=== PATIENT | female | born 1935 | race Caucasian/White ===

== ENCOUNTER 2018-06-20 09:37 | Emergency (ER) | END 2018-06-20 14:45 | disposition home or self-care (01) ==

== ENCOUNTER 2019-05-09 10:03 | Inpatient (IN) | payer MEDICARE, OTHER ==
[~2019-05-09] VITALS: Ht 198.1 cm; Wt 70.0 kg
[~2019-05-09 10:03] MED LIST: AMLO5TAB4 PO; ASPI-903 PO; BUSP5TAB2 PO; CELE200C PO; CHOL100062 PO; CLON0.5T14 PO; DICL100G37 TOP; DOXE3TAB3 PO; DULO30CA47 PO; ESOM40CA PO; FURO40TA4 PO; HYDR25TA6 PO; LEVA15HF6 INH; LEVO50TA7 PO; LORA10TA3 PO; MEMA1CAP3 PO; METO-335 PO; MIRA50TA PO; NITR0.4T32 SL; OLME5TAB4 PO; ONDA8TAB14 PO; RANI150T5 PO; SPIR25TA PO; TRAM1TAB58 PO; VILA40TA PO
[2019-05-09] MEDS ORDERED: SOD CHLORIDE 0.9% 500 ML IV STA (10:23)
[2019-05-09] MEDS ORDERED: DILTIAZEM-D5W 125MG/125ML DRIP 125 ML IV STA (10:34)
[2019-05-09] MEDS ORDERED: DILTIAZEM 25 MG INJ IV STA (10:34)
[2019-05-09] MEDS ORDERED: ASPIRIN (EC) 325 MG TAB PO ONE (11:00)
[2019-05-09] MEDS ORDERED: CHOL500010 PO (13:04)
[2019-05-09] MEDS ORDERED: CYCL1DRO BOTH EYES (13:05)
[2019-05-09] MEDS ORDERED: PARO10TA57 PO (13:06)
[2019-05-09] MEDS ORDERED: CLON-379 PO (13:06)
--- NOTE | 2019-05-09 13:06 | ERD ---
ER Documentation Chief Complaint Chief Complaint PT BIB RA with c/o HTN ,found tachycardic with HR up to 166/afib HPI This is an 83-year-old female that presents to the emergency department complaining of lightheaded and dizziness for the past several days. She also stated that she has been experiencing intermittent palpitations. She denied any chest pressure. She denies a productive or nonproductive cough. EMS arrived and indicated the patient was hypertensive and tachycardic with heart rate of 166. The patient is not on blood thinners and states she has no known history of atrial fibrillation. The patient denies any recent hospitalizations. She has had no sick contacts. She denies any swelling of her lower extremities and no shortness of breath at rest or exertion. ROS All systems reviewed and are negative except as per history of present illness. Medications Home Meds Active Scripts Ondansetron (Ondansetron Odt) 8 Mg Tab.rapdis, 8 MG PO Q6H PRN for NAUSEA AND/OR VOMITING, #10 TAB Prov:FRANKIE HIDALGO MD 06/20/18 Reported Medications Olmesartan Medoxomil (Benicar) 5 Mg Tablet, 5 MG PO DAILY, #30 TAB 06/20/18 Spironolactone* (Aldactone*) 25 Mg Tablet, 25 MG PO DAILY, #30 TAB 06/20/18 Furosemide* (Furosemide*) 40 Mg Tablet, 40 MG PO DAILY, TAB 06/20/18 Duloxetine Hcl* (Duloxetine Hcl*) 30 Mg Capsule.dr, 30 MG PO BID, #30 CAP 06/20/18 Doxepin Hcl* (Silenor*) 3 Mg Tablet, 3 MG PO HS PRN for INSOMNIA, TAB 06/20/18 Clonazepam* (Clonazepam*) 0.5 Mg Tablet, 0.5 MG PO DAILY PRN for ANXIETY, TAB 06/20/18 Memantine HCl/Donepezil HCl (Namzaric 28 mg-10 mg Capsule) 1 Each Cap.spr.24, 1 EACH PO DAILY 06/20/18 Buspirone Hcl* (Buspirone Hcl*) 5 Mg Tab, 5 MG PO DAILY, TAB 06/20/18 Vilazodone Hcl (Viibryd) 40 Mg Tablet, 40 MG PO DAILY, TAB 06/20/18 Diclofenac Sodium* (Voltaren* Gel) 1% -100 Gm Gel, 2 GM TOP QID, #1 TUB 06/20/18 Aspirin* (Aspirin* Chew) 81 Mg Tab.chew, 81 MG PO DAILY, TAB.CHEW 06/20/18 Esomeprazole Mag Trihydrate (Nexium) 40 Mg Capsule.dr, 40 MG PO DAILY, #30 CAP 06/20/18 Celecoxib* (Celebrex*) 200 Mg Capsule, 200 MG PO DAILY, CAP 06/20/18 Levothyroxine Sodium* (Levothyroxine Sodium*) 50 Mcg Tablet, 50 MCG PO BEFORE BREAKFAST, #30 TAB 06/20/18 Loratadine* (Loratadine*) 10 Mg Tablet, 10 MG PO DAILY, #30 TAB 06/20/18 Levalbuterol* (Xopenex* HFA) 15 Gm Inha, 2 PUFFS INH Q4H PRN for WHEEZING AND SOB, INHALER 06/20/18 Mirabegron (Myrbetriq) 50 Mg Tab.er.24h, 50 MG PO DAILY, TAB 06/20/18 Ranitidine Hcl* (Ranitidine Hcl*) 150 Mg Tablet, 150 MG PO HS, #30 TAB 06/20/18 Amlodipine Besylate* (Norvasc*) 5 Mg Tablet, 5 MG PO DAILY, TAB 06/20/18 Hydrochlorothiazide* (Hydrochlorothiazide*) 25 Mg Tab, 25 MG PO DAILY, #30 TAB 06/20/18 Cholecalciferol* (Vitamin D3*) 1,000 Unit Tablet, 1000 UNIT PO DAILY, TAB 06/20/18 Nitroglycerin* (Nitroglycerin* SL) 0.4 Mg Tab.subl, 0.4 MG SL Q5MIN PRN for CHEST PAIN, BOTTLE 06/20/18 Metoprolol Succinate* (Toprol XL*) 25 Mg Tab.sr.24h, 25 MG PO DAILY, #30 TAB 06/20/18 Tramadol HCl/Acetaminophen (Ultracet Tablet) 1 Each Tablet, 1 EACH PO BID PRN for SEVERE PAIN LEVEL 7-10, TAB 06/20/18 Allergies Allergies: Coded Allergies: lidocaine (Verified Allergy, Intermediate, STOPS BREATHING, 05/09/19) PMhx/Soc History of Surgery: No Anesthesia Reaction: No Hx Neurological Disorder: No Hx Respiratory Disorders: No Hx Cardiac Disorders: Yes (HTN, "arrythmia") Hx Psychiatric Problems: No Hx Miscellaneous Medical Probl: Yes (THYROID, BACK PAIN) Hx Alcohol Use: No Hx Substance Use: No Hx Tobacco Use: No Smoking Status: Never smoker Physical Exam Vitals Vital Signs Date Temp Pulse Resp B/P (MAP) Pulse Ox O2 O2 Flow FiO2 Time Delivery Rate 05/09/19 98.1 145 18 147/120 100 10:19 (129) Physical Exam Constitutional:Well-developed. Well-nourished. HEENT:Normocephalic. Atraumatic.Pupils were equal round reactive to light. Moist mucous membranes.No tonsillar exudates. Neck: No nuchal rigidity. No lymphadenopathy. No posterior cervical spine tenderness or step-offs. Respiratory: Not using accessory muscles of respiration.Lungs were clear to auscultation bilaterally. No rhonchi. No rales. No wheezing. Cardiovascular: Tachycardic with irregular regular rhythm. S1-S2 is normal. No murmurs rubs were appreciated. No JVD. GI: Abdomen was soft. Nontender. Non Distended. No pulsatile abdominal masses or bruits. No rebound. No guarding. Bowel sounds were present and normal. Muscle skeletal: Full range of motion of both the upper and lower extremities bilaterally.Normal muscle tone.No assymetrical calf tenderness or swelling. Skin: No petechia, no purpura. No lesions on the palms or the soles of the feet. No maculopapular rash. NEURO: Patient was alert, awake, orientated x3.No facial droop. Gait observed and normal with no ataxia.Speech had regular rate and rhythm. No focal neurological deficits. Result Diagram: 05/09/19 1035 05/09/19 1035 Results 24 hrs Laboratory Tests Test 05/09/19 10:35 05/09/19 11:42 White Blood Count 3.8 10^3/ul Red Blood Count 4.41 10^6/ul Hemoglobin 13.2 g/dl Hematocrit 39.0 % Mean Corpuscular Volume 88.4 fl Mean Corpuscular Hemoglobin 29.9 pg Mean Corpuscular Hemoglobin Concent 33.8 g/dl Red Cell Distribution Width 12.4 % Platelet Count 185 10^3/UL Mean Platelet Volume 10.1 fl Immature Granulocytes % 0.300 % Neutrophils % 69.8 % Lymphocytes % 23.4 % Monocytes % 6.5 % Eosinophils % 0.0 % Basophils % 0.0 % Nucleated Red Blood Cells % 0.0 /100WBC Immature Granulocytes # 0.010 10^3/ul Neutrophils # 2.7 10^3/ul Lymphocytes # 0.9 10^3/ul Monocytes # 0.3 10^3/ul Eosinophils # 0.0 10^3/ul Basophils # 0.0 10^3/ul Nucleated Red Blood Cells # 0.0 10^3/ul Prothrombin Time 12.3 Sec Prothrombin Time Ratio 1.0 INR International Normalized Ratio 0.90 Activated Partial Thromboplast Time 34.1 Sec Sodium Level 139 mmol/L Potassium Level 4.2 mmol/L Chloride Level 102 mmol/L Carbon Dioxide Level 26 mmol/L Anion Gap 11 Blood Urea Nitrogen 13 mg/dl Creatinine 0.78 mg/dl Est Glomerular Filtrat Rate mL/min mL/min Glucose Level 119 mg/dl Calcium Level 9.6 mg/dl Total Bilirubin 0.5 mg/dl Direct Bilirubin 0.00 mg/dl Indirect Bilirubin 0.5 mg/dl Aspartate Amino Transf (AST/SGOT) 21 IU/L Alanine Aminotransferase (ALT/SGPT) 22 IU/L Alkaline Phosphatase 84 IU/L Creatine Kinase 48 IU/L Creatine Kinase Index 4.2 Creatinine Kinase MB (Mass) 2.00 ng/ml Troponin I < 0.012 ng/ml B-Type Natriuretic Peptide 213 PG/ML Total Protein 7.7 g/dl Albumin 4.1 g/dl Globulin 3.60 g/dl Albumin/Globulin Ratio 1.13 Urine Color COLORLESS Urine Clarity CLEAR Urine pH 7.0 Urine Specific [place] 1.003 Urine Ketones TRACE mg/dL Urine Nitrite NEGATIVE mg/dL Urine Bilirubin NEGATIVE mg/dL Urine Urobilinogen NEGATIVE mg/dL Urine Leukocyte Esterase NEGATIVE Sebas/ul Urine Hemoglobin NEGATIVE mg/dL Urine Glucose NEGATIVE mg/dL Urine Total Protein NEGATIVE mg/dl Current Medications Medications Dose Sig/John Start Time Status Last (Trade) Ordered Route PRN Stop Time Admin Dose Reason Admin Sodium 500 ml @ Q1H STAT 05/09/19 DC 05/09/19 Chloride 500 mls/hr IV 10:23 11:12 05/09/19 11:22 Diltiazem 10 mg ONCE STAT 05/09/19 DC HCl IV 10:34 (Cardizem Iv) 05/09/19 10:36 Diltiazem 125 ml @ 5 ONCE STAT 05/09/19 HCl mls/hr IV 10:34 05/10/19 11:33 Aspirin 325 mg ONCE ONCE 05/09/19 DC 05/09/19 (Ecotrin) PO 11:00 13:00 05/09/19 11:01 Procedures/MDM This is a very pleasant 83-year-old female presented to the emergency department with palpitations and hypertension. The patient placed in a court recording monitor continuous pulse oximetry and IV access was established by nursing staff. 12 Lead EKG tracing ordered and reviewed by myself showed: Tachycardic with irregular regular rhythm 153 bpm and no arrhythmia. KS interval not appreciated as P waves were not present QRS duration normal. No ST segment elevation No ST segment depression. No changes consistent with acute ischemia. The patient was given 10 mg of IV Cardizem and subsequently placed on a drip. The patient was now rate controlled as but still appeared to be an irregular regular rhythm concerning for new onset atrial fibrillation. I obtained a 1 view chest radiograph that was reviewed by the radiologist myself and indicate the following: There is prominence of the right perihilar region. Follow-up is recommended to exclude consolidation, prominent vessels, or neoplasm. The patient will be admitted to the hospitalist to the telemetry service in serious condition with an anticipated stay of greater than 2 midnights due to her new onset atrial fibrillation. Regarding the findings on the chest radiograph this will be followed up upon her admission. Critical Care: Time: 65 minutes Treatments/Evaluations: Close monitoring and treatment of unstable vital signs, cardiorespiratory, and neurologic status, while maintaining tight balance of fluid, respiratory, and cardiac interventions. Time does not include performing any of the above billable procedures. Departure Diagnosis: Primary Impression: Atrial fibrillation with rapid ventricular response Condition: Serious FRANKIE HIDALGO MD May 09, 2019 13:06
[2019-05-09] MEDS ORDERED: LUBI8CAP4 PO (13:11)
[2019-05-09] MEDS ORDERED: ICOS1CAP PO ×2 (13:18→13:24)
[2019-05-09] MEDS ORDERED: ACETAMINOPHEN 325 MG TAB PO PRN ×2 (14:00→15:00)
[2019-05-09] MEDS ORDERED: ONDANSETRON 4 MG INJ IV PRN ×2 (14:00→15:00)
--- NOTE | 2019-05-09 14:06 | CONS ---
Assessment/Plan Assessment/Plan Hospital Course (Demo Recall) Atrial fibrillation rapid ventricular rates Hypertension Patient presents with symptoms of palpitations and feeling that her blood pressure is elevated. Patient found to be in atrial fibrillation with rapid ventricular rates On further discussion, patient states she has a history of "arrhythmia" which she takes metoprolol for and aspirin Heart rate is better controlled after IV Cardizem We will adjust AV april blocking agents Check echocardiogram, TSH Telemetry monitoring Consultation Date/Type/Reason Admit Date/Time Type of Consult Cardiology Reason for Consultation Atrial fibrillation Date/Time of Note DATE: 05/09/19 TIME: 14:01 Hx of Present Illness This is an 83-year-old female with past medical history of hypertension, "arrhythmia" who presents with elevated blood pressure and palpitations. Patient states her blood pressures been hard to control over the past few weeks. This morning, she felt that her blood pressure was high and was having palpitat ions. She denies any shortness of breath, denies chest pain. Denies dizziness or lightheadedness. EMS was called and patient brought to the emergency room. Patient was given IV Cardizem for controlling her heart rate. She currently feels much better. She denies any chest pain, shortness of breath or palpitations per currently. She does walk with a walker secondary to history of vertebral fracture. She denies exertional chest pain or shortness of breath. She has noticed blood pressure has been on the higher side for some time. 12 point review of systems was performed with all pertinent positives and negatives mentioned above and all else is negative Past Medical History Atrial fibrillation Medical History: hypertension Home Meds Reported Medications Icosapent Ethyl (VASCEPA) 1 Gm Capsule, 2 GM PO BID, CAP 05/09/19 Lubiprostone* (Amitiza*) 8 Mcg Capsule, 8 MCG PO BID, #60 CAP 05/09/19 Clonidine Hcl* (Clonidine Hcl*) 0.1 Mg Tab, 0.1 MG PO DAILY PRN for ELEVATED BLOOD PRESSURE, TAB 05/09/19 Paroxetine Hcl* (Paxil*) 10 Mg Tablet, 10 MG PO DAILY, TAB 05/09/19 Cyclosporine (RESTASIS) 1 Each [place], 1 DROP BOTH EYES Q12, #1 BOX 05/09/19 Cholecalciferol (Vitamin D3) 5,000 Unit Tablet, 5000 UNIT PO DAILY, TAB 05/09/19 Olmesartan Medoxomil (Benicar) 5 Mg Tablet, 5 MG PO DAILY, #30 TAB 06/20/18 Furosemide* (Furosemide*) 40 Mg Tablet, 40 MG PO DAILY, TAB 06/20/18 Clonazepam* (Clonazepam*) 0.5 Mg Tablet, 0.5 MG PO DAILY PRN for ANXIETY, TAB 06/20/18 Aspirin* (Aspirin* Chew) 81 Mg Tab.chew, 81 MG PO DAILY, TAB.CHEW 06/20/18 Celecoxib* (Celebrex*) 200 Mg Capsule, 200 MG PO DAILY, CAP 06/20/18 Levothyroxine Sodium* (Levothyroxine Sodium*) 50 Mcg Tablet, 50 MCG PO BEFORE BREAKFAST, #30 TAB 06/20/18 Loratadine* (Loratadine*) 10 Mg Tablet, 10 MG PO DAILY, #30 TAB 06/20/18 Levalbuterol* (Xopenex* HFA) 15 Gm Inha, 2 PUFFS INH Q4H PRN for WHEEZING AND SOB, INHALER 06/20/18 Mirabegron (Myrbetriq) 50 Mg Tab.er.24h, 50 MG PO DAILY, TAB 06/20/18 Ranitidine Hcl* (Ranitidine Hcl*) 150 Mg Tablet, 150 MG PO HS, #30 TAB 06/20/18 Amlodipine Besylate* (Norvasc*) 5 Mg Tablet, 5 MG PO DAILY, TAB 06/20/18 Hydrochlorothiazide* (Hydrochlorothiazide*) 25 Mg Tab, 25 MG PO DAILY, #30 TAB 06/20/18 Nitroglycerin* (Nitroglycerin* SL) 0.4 Mg Tab.subl, 0.4 MG SL Q5MIN PRN for CHEST PAIN, BOTTLE 06/20/18 Metoprolol Succinate* (Toprol XL*) 25 Mg Tab.sr.24h, 25 MG PO DAILY, #30 TAB 06/20/18 Discontinued Reported Medications Icosapent Ethyl (VASCEPA) 1 Gm Capsule, 1 GM PO, CAP 05/09/19 Spironolactone* (Aldactone*) 25 Mg Tablet, 25 MG PO DAILY, #30 TAB 06/20/18 Duloxetine Hcl* (Duloxetine Hcl*) 30 Mg Capsule.dr, 30 MG PO BID, #30 CAP 06/20/18 Doxepin Hcl* (Silenor*) 3 Mg Tablet, 3 MG PO HS PRN for INSOMNIA, TAB 06/20/18 Memantine HCl/Donepezil HCl (Namzaric 28 mg-10 mg Capsule) 1 Each Cap.spr.24, 1 EACH PO DAILY 06/20/18 Buspirone Hcl* (Buspirone Hcl*) 5 Mg Tab, 5 MG PO DAILY, TAB 06/20/18 Vilazodone Hcl (Viibryd) 40 Mg Tablet, 40 MG PO DAILY, TAB 06/20/18 Diclofenac Sodium* (Voltaren* Gel) 1% -100 Gm Gel, 2 GM TOP QID, #1 TUB 06/20/18 Esomeprazole Mag Trihydrate (Nexium) 40 Mg Capsule.dr, 40 MG PO DAILY, #30 CAP 06/20/18 Cholecalciferol* (Vitamin D3*) 1,000 Unit Tablet, 1000 UNIT PO DAILY, TAB 06/20/18 Tramadol HCl/Acetaminophen (Ultracet Tablet) 1 Each Tablet, 1 EACH PO BID PRN for SEVERE PAIN LEVEL 7-10, TAB 06/20/18 Discontinued Scripts Ondansetron (Ondansetron Odt) 8 Mg Tab.rapdis, 8 MG PO Q6H PRN for NAUSEA AND/OR VOMITING, #10 TAB Prov:FRANKIE HIDALGO MD 06/20/18 Medications Current Medications Diltiazem HCl 125 ml @ 5 mls/hr ONCE STAT IV ; Start 05/09/19 at 10:34; Stop 05/10/19 at 11:33 Ondansetron HCl (Zofran Inj) 4 mg ER BRIDGE PRN IV NAUSEA/VOMITING; Start 05/09/19 at 14:00; Stop 05/10/19 at 13:59 Acetaminophen (Tylenol Tab) 650 mg ER BRIDGE PRN PO .MILD PAIN 1-3 OR TEMP; Start 05/09/19 at 14:00; Stop 05/10/19 at 13:59 Allergies: Coded Allergies: lidocaine (Verified Allergy, Intermediate, STOPS BREATHING, 05/09/19) Family History Significant Family History: no pertinent family hx Social History Alcohol Use: none Smoking Status: Never smoker Exam/Review of Systems Vital Signs Vitals Vital Signs Date Temp Pulse Resp B/P (MAP) Pulse Ox O2 O2 Flow FiO2 Time Delivery Rate 7/12/19 98.1 145 18 147/120 100 10:19 (129) Exam Constitutional: alert, oriented (No apparent distress) Head: normocephalic Respiratory: clear to auscultation, normal air movement Cardiovascular: irregular rhythm (S1-S2 heard) Gastrointestinal: soft, non-tender, bowel sounds Extremities: edema (Trace) Labs Result Diagram: 05/09/19 1035 05/09/19 1035 Results 24hrs Laboratory Tests Test 05/09/19 10:35 05/09/19 11:42 White Blood Count 3.8 #L Red Blood Count 4.41 Hemoglobin 13.2 Hematocrit 39.0 Mean Corpuscular Volume 88.4 Mean Corpuscular Hemoglobin 29.9 Mean Corpuscular Hemoglobin Concent 33.8 Red Cell Distribution Width 12.4 Platelet Count 185 Mean Platelet Volume 10.1 Immature Granulocytes % 0.300 Neutrophils % 69.8 Lymphocytes % 23.4 Monocytes % 6.5 Eosinophils % 0.0 Basophils % 0.0 Nucleated Red Blood Cells % 0.0 Immature Granulocytes # 0.010 Neutrophils # 2.7 Lymphocytes # 0.9 Monocytes # 0.3 Eosinophils # 0.0 Basophils # 0.0 Nucleated Red Blood Cells # 0.0 Prothrombin Time 12.3 Prothrombin Time Ratio 1.0 INR International Normalized Ratio 0.90 Activated Partial Thromboplast Time 34.1 Sodium Level 139 Potassium Level 4.2 Chloride Level 102 Carbon Dioxide Level 26 Anion Gap 11 Blood Urea Nitrogen 13 Creatinine 0.78 Est Glomerular Filtrat Rate mL/min Glucose Level 119 Calcium Level 9.6 Total Bilirubin 0.5 Direct Bilirubin 0.00 Indirect Bilirubin 0.5 Aspartate Amino Transf (AST/SGOT) 21 Alanine Aminotransferase (ALT/SGPT) 22 Alkaline Phosphatase 84 Creatine Kinase 48 Creatine Kinase Index 4.2 Creatinine Kinase MB (Mass) 2.00 Troponin I < 0.012 B-Type Natriuretic Peptide 213 Total Protein 7.7 Albumin 4.1 Globulin 3.60 H Albumin/Globulin Ratio 1.13 Urine Color COLORLESS Urine Clarity CLEAR Urine pH 7.0 Urine Specific [place] 1.003 Urine Ketones TRACE A Urine Nitrite NEGATIVE Urine Bilirubin NEGATIVE Urine Urobilinogen NEGATIVE Urine Leukocyte Esterase NEGATIVE Urine Hemoglobin NEGATIVE Urine Glucose NEGATIVE Urine Total Protein NEGATIVE Imaging Imaging He demonstrates atrial fibrillation at 153 bpm, QRS 74 ms, nonspecific ST abnormalities Medications Medications Current Medications Diltiazem HCl 125 ml @ 5 mls/hr ONCE STAT IV ; Start 05/09/19 at 10:34; Stop 05/10/19 at 11:33 Ondansetron HCl (Zofran Inj) 4 mg ER BRIDGE PRN IV NAUSEA/VOMITING; Start 05/09/19 at 14:00; Stop 05/10/19 at 13:59 Acetaminophen (Tylenol Tab) 650 mg ER BRIDGE PRN PO .MILD PAIN 1-3 OR TEMP; Start 05/09/19 at 14:00; Stop 05/10/19 at 13:59 Mal Lindsay DO May 09, 2019 14:05
--- NOTE | 2019-05-09 14:53 | HP ---
Date/Time of Note Date/Time of Note DATE: 05/09/19 TIME: 14:36 Assessment/Plan VTE Prophylaxis SCD applied (from Nsg): Yes Pharmacological prophylaxis: apixaban Lines/Catheters IV Catheter Type (from Nrsg): Saline Lock Assessment/Plan Assessment/Plan 1. Atrial fibrillation with RVR - seen on EKG. given Cardizem in ED with improvement in rate - Cardiology consultation appreciated and adjustments made to BB - patient started on Eliquis per Cardio - TSH and ECHO ordered - serial trops ordered as well 2. Hypertension - on norvasc and will resume - will adjust for proper BP control 3. Right prominence on CXR - patient denies any respiratory issues or smoking history - Will check CT chest to rule out consolidation vs neoplasm - continue home nebs 4. Hypothyroidism - continue levothyroxine - check TSH 5. Arthritis - continue Voltaren gel and Tramadol PRN for relief - PT/OT 6. Constipation - continue home bowel regime 7. h/o H Pylori - completed treatment 8. Diet - Cardiac 9. Disposition - Admit to Telemetry for treatment of atrial fibrillation with RVR. Result Diagram: 05/09/19 1035 05/09/19 1035 Results 24hrs Laboratory Tests Test 05/09/19 10:35 05/09/19 11:42 White Blood Count 3.8 #L Red Blood Count 4.41 Hemoglobin 13.2 Hematocrit 39.0 Mean Corpuscular Volume 88.4 Mean Corpuscular Hemoglobin 29.9 Mean Corpuscular Hemoglobin Concent 33.8 Red Cell Distribution Width 12.4 Platelet Count 185 Mean Platelet Volume 10.1 Immature Granulocytes % 0.300 Neutrophils % 69.8 Lymphocytes % 23.4 Monocytes % 6.5 Eosinophils % 0.0 Basophils % 0.0 Nucleated Red Blood Cells % 0.0 Immature Granulocytes # 0.010 Neutrophils # 2.7 Lymphocytes # 0.9 Monocytes # 0.3 Eosinophils # 0.0 Basophils # 0.0 Nucleated Red Blood Cells # 0.0 Prothrombin Time 12.3 Prothrombin Time Ratio 1.0 INR International Normalized Ratio 0.90 Activated Partial Thromboplast Time 34.1 Sodium Level 139 Potassium Level 4.2 Chloride Level 102 Carbon Dioxide Level 26 Anion Gap 11 Blood Urea Nitrogen 13 Creatinine 0.78 Est Glomerular Filtrat Rate mL/min Glucose Level 119 Calcium Level 9.6 Total Bilirubin 0.5 Direct Bilirubin 0.00 Indirect Bilirubin 0.5 Aspartate Amino Transf (AST/SGOT) 21 Alanine Aminotransferase (ALT/SGPT) 22 Alkaline Phosphatase 84 Creatine Kinase 48 Creatine Kinase Index 4.2 Creatinine Kinase MB (Mass) 2.00 Troponin I < 0.012 B-Type Natriuretic Peptide 213 Total Protein 7.7 Albumin 4.1 Globulin 3.60 H Albumin/Globulin Ratio 1.13 Urine Color COLORLESS Urine Clarity CLEAR Urine pH 7.0 Urine Specific [place] 1.003 Urine Ketones TRACE A Urine Nitrite NEGATIVE Urine Bilirubin NEGATIVE Urine Urobilinogen NEGATIVE Urine Leukocyte Esterase NEGATIVE Urine Hemoglobin NEGATIVE Urine Glucose NEGATIVE Urine Total Protein NEGATIVE HPI/ROS Admit Date/Time Admit Date/Time 05/09/19 Hx of Present Illness 83 yo F with PMH Hypothyroidism, "arrhythmia", arthritis, constipation, and Hpylori presented to ED due to elevated blood pressure and "arrhythmia." She has been experiencing associated lightheadedness and intermittent palpitations. Patient states she has felt these palpitations before and believes this episode may be from the stress of her kids being in town. Patient also concerned about her BP being in the 190s and she said it usually runs in the 140s. Upon presentation to ED, she was found in atrial fibrillation with RVR with HR in the 160s. She was given Cardizem with improvement in rate. She denies being on blood thinners and if needed, only prefers aspirin. She denies shortness of breath, nausea, vomiting, any recent sick contact, cough, productive sputum, fevers, chills. She does admit to chronic constipation after vertebral fracture and on medications but afraid to take them. She likes to drink prune juice and increase fiber in her diet to assist with BMs. She denies any urinary discomfort. She denies any GI bleeding but is prone to falls given arthritis in knees and back issues. ROS All 12 systems reviewed and pertinent positives as per HPI. All others negative. Constitutional: No disoriented, No fatigue, No nausea Eyes: No discharge ENT: No congestion Respiratory: No cough, No shortness of breath, No sputum, No wheezing Cardiovascular: lightheadedness, palpitations; No chest pain Gastrointestinal: constipation; No pain, No diarrhea, No nausea, No vomiting Genitourinary: no complaints Musculoskeletal: back pain, bone/joint pain Skin: No bruising, No laceration, No rash Neurologic: dizziness; No confusion, No focal-weakness, No syncope Endocrine: no complaints Lymphatic: no complaints Psychological: nl mood/affect Immunologic: no complaints PMH/Family/Social Past Medical History Medical History: hypothyroid, other (Hpylori, "arrhythmia", arthritis) Medications Current Medications Diltiazem HCl 125 ml @ 5 mls/hr ONCE STAT IV ; Start 05/09/19 at 10:34; Stop 05/10/19 at 11:33 Ondansetron HCl (Zofran Inj) 4 mg ER BRIDGE PRN IV NAUSEA/VOMITING; Start 05/09/19 at 14:00; Stop 05/10/19 at 13:59 Acetaminophen (Tylenol Tab) 650 mg ER BRIDGE PRN PO .MILD PAIN 1-3 OR TEMP; Start 05/09/19 at 14:00; Stop 05/10/19 at 13:59 Metoprolol Tartrate (Lopressor) 50 mg BID PO ; Start 05/09/19 at 15:00 Apixaban (Eliquis) 5 mg BID PO ; Start 05/09/19 at 21:00; Status UNV Amlodipine Besylate (Norvasc) 5 mg BID PO ; Start 05/09/19 at 21:00; Status UNV Coded Allergies: lidocaine (Verified Allergy, Intermediate, STOPS BREATHING, 05/09/19) Past Surgical History Past Surgical Hx: cholecystectomy, other (meniscus repair, MARQUIS BSO) Family History Significant Family History: no pertinent family hx Social History Alcohol Use: none Smoking Status: Never smoker Drug Use: none Exam/Review of Systems Vital Signs Vitals Vital Signs Date Temp Pulse Resp B/P (MAP) Pulse Ox O2 O2 Flow FiO2 Time Delivery Rate 05/09/19 98.1 145 18 147/120 100 10:19 (129) Exam Exam General: Patient is a pleasant [place]ese speaking female, laying bed in mild distress secondary to headache from surrounding noise, answering questions appropriately HEENT: Atraumatic, normocephalic. PERRL, EOM intact Neck: Supple with full range of motion. No rigidity or meningismus Chest: nontender Lungs: Clear to auscultation bilaterally. no wheezing or rhonchi Heart: Normal S1-S2, irregular rhythm, regular rate. no murmurs Abdomen: Soft , nontender, nondistended, bowel sounds are present. No guarding no rebound tenderness , No masses or organomegaly Extremities: moving all extremities. dressing on right knee. no edema, cyanosis, or clubbing Neurologic: no focal deficits appreciated. CN 2-12 intact Skin: no rashes or lesions appreciated Additional Comments Home medications reviewed PROCEDURE: XR Chest. CLINICAL INDICATION: Shortness of breath. TECHNIQUE: Single frontal view. COMPARISON: None. FINDINGS: There is prominence of the right perihilar region. The heart size is normal. There is a tortuous calcified thoracic aorta. There is no pleural effusion. There is no pneumothorax. IMPRESSION: There is prominence of the right perihilar region. Follow-up is recommended to exclude consolidation, prominent vessels, or neoplasm. RPTAT: QQ Physician Razia Date Time Electronically viewed and signed by Darryl Ware Physician on 05/09/2019 10:57 MATT GLASER MD May 09, 2019 14:48
[2019-05-09] MEDS ORDERED: NITROGLYCERIN (SL) 0.4 MG TAB SL PRN (15:00)
[2019-05-09] MEDS ORDERED: LEVALBUTEROL (HFA) 15 GM INHALER INH PRN (15:00)
[2019-05-09] MEDS ORDERED: clonAZEPAM 0.5 MG TAB PO PRN (15:00)
[2019-05-09] MEDS ORDERED: NACL 0.9% 3 ML SYG IV SCH (15:00)
[2019-05-09] MEDS ORDERED: MAGNESIUM HYDROXIDE 30ML CUP PO PRN (15:00)
[2019-05-09] MEDS ORDERED: DOCUSATE SODIUM 100 MG CAP PO PRN (15:00)
[2019-05-09] MEDS ORDERED: traMADol 50 MG TAB PO PRN (15:00)
[2019-05-09] MEDS ORDERED: SOD CHLORIDE 0.9% 100 ML ONE (15:25)
[2019-05-09] MEDS ORDERED: IOHEXOL 300MG/ML 150 ML BTL ONE (15:26)
[2019-05-09] MEDS: APIXABAN 5 MG TABLET PO SCH (17:15)
[2019-05-09] MEDS: DICLOFENAC SODIUM 1% GEL 100 GM TUBE TP SCH ×3 (17:16→21:25)
[2019-05-09] MEDS: METOPROLOL 50 MG TAB PO SCH ×2 (17:16→21:24)
[2019-05-09 17:44] VITALS: BP 142/88; PULSE 64; RESP 17
[2019-05-09 18:09] VITALS: Ht 198.1 cm; Wt 70.0 kg
[2019-05-09 20:00] VITALS: BP 125/65; PULSE 67; RESP 18
[2019-05-09] MEDS: LUBIPROSTONE 8 MCG CAPSULE PO SCH (21:00)
[2019-05-09] MEDS ORDERED: RANITIDINE 150 MG TAB PO SCH (21:00)
[2019-05-09] MEDS: CYCLOSPORINE 0.05% OPH DROPERETTE BOTH EYES SCH (21:00)
[2019-05-09] MEDS: AMLODIPINE 5 MG TAB PO SCH (21:24)
[2019-05-10] VITALS: BP 128/72; PULSE 65; RESP 18
[2019-05-10] MEDS: APIXABAN 5 MG TABLET PO SCH ×2 (00:58→10:10)
[2019-05-10 04:00] VITALS: BP 127/63; PULSE 70; RESP 18
[2019-05-10] MEDS ORDERED: LEVOTHYROXINE 50 MCG TAB PO SCH (07:00)
[2019-05-10 08:06] VITALS: BP 132/71; PULSE 59; RESP 18
[2019-05-10] MEDS ORDERED: CELECOXIB 200 MG CAP PO SCH (09:00)
[2019-05-10] MEDS ORDERED: FUROSEMIDE 40 MG TAB PO SCH (09:00)
[2019-05-10] MEDS ORDERED: CHOLECALCIFEROL 1,000 UNIT TAB PO SCH (09:00)
[2019-05-10] MEDS ORDERED: LORATADINE 10 MG TAB PO SCH (09:00)
[2019-05-10] MEDS ORDERED: PAROXETINE 10 MG TAB PO SCH (09:00)
[2019-05-10] MEDS: CYCLOSPORINE 0.05% OPH DROPERETTE BOTH EYES SCH (10:10)
[2019-05-10] MEDS: AMLODIPINE 5 MG TAB PO SCH (10:11)
[2019-05-10] MEDS: LUBIPROSTONE 8 MCG CAPSULE PO SCH (10:11)
[2019-05-10] MEDS: METOPROLOL 50 MG TAB PO SCH (10:12)
[2019-05-10] MEDS: DICLOFENAC SODIUM 1% GEL 100 GM TUBE TP SCH ×3 (10:13→17:23)
--- NOTE | 2019-05-10 11:06 | PN ---
Date/Time of Note Date/Time of Note DATE: 05/10/19 TIME: 10:56 Assessment/Plan VTE Prophylaxis Risk score (from Ns)>0 risk: 4 SCD applied (from [facility] [place]): No SCD contraindicated: other Pharmacological prophylaxis: apixaban Lines/Catheters IV Catheter Type (from [facility]): Saline Lock Assessment/Plan Assessment/Plan 1. Atrial fibrillation with RVR- resolved - patient is back in sinus rhythm. HR running in the 50-60s - Cardiology consultation appreciated and adjustments made to BB - patient started on Eliquis per Cardio - TSH within normal limits - serial trops negative 2. Hypertension - on norvasc and BP controlled 3. Right breast cyst - patient aware and has no plans for intervention 4. Hypothyroidism - continue levothyroxine - TSH normal 5. Arthritis - continue Voltaren gel and Tramadol PRN for relief - PT/OT 6. Constipation - continue home bowel regime 7. h/o H Pylori - completed treatment 8. ?prominence on CXR - CT chest reviewed and not seen on imaging results 9. Disposition - Patient appears to have improved and will d/c home once cleared by Cardiology - Will consult CM to assess coverage for Eliquis Result Diagram: 05/10/19 0529 05/10/19 0528 Results 24hrs Laboratory Tests Test 05/09/19 11:42 05/09/19 19:08 05/09/19 22:18 05/10/19 05:28 Urine Color COLORLESS Urine Clarity CLEAR Urine pH 7.0 Urine Specific 1.003 Slaughter Urine Ketones TRACE A Urine Nitrite NEGATIVE Urine Bilirubin NEGATIVE Urine Urobilinogen NEGATIVE Urine Leukocyte NEGATIVE Esterase Urine Hemoglobin NEGATIVE Urine Glucose NEGATIVE Urine Total Protein NEGATIVE Creatine Kinase 46 43 Creatine Kinase 4.7 4.7 Index Creatinine Kinase MB 2.17 2.00 (Mass) Troponin I 0.017 < 0.012 Sodium Level 141 Potassium Level 4.1 Chloride Level 106 Carbon Dioxide Level 28 Anion Gap 7 Blood Urea Nitrogen 14 Creatinine 0.73 Est Glomerular Filtrat Rate mL/min Glucose Level 87 Calcium Level 9.6 Magnesium Level 2.0 Triglycerides Level 119 Cholesterol Level 194 LDL Cholesterol, 130 Calculated HDL Cholesterol 40 Cholesterol/HDL 4.8 Ratio Test 05/10/19 05:29 White Blood Count 2.8 #L Red Blood Count 4.12 L Hemoglobin 12.3 Hematocrit 36.5 L Mean Corpuscular 88.6 Volume Mean Corpuscular 29.9 Hemoglobin Mean Corpuscular 33.7 Hemoglobin Concent Red Cell 12.6 Distribution Width Platelet Count 187 Mean Platelet Volume 10.1 Immature 0.400 Granulocytes % Neutrophils % 49.4 Lymphocytes % 39.6 Monocytes % 10.6 Eosinophils % 0.0 Basophils % 0.0 Nucleated Red Blood 0.0 Cells % Immature 0.010 Granulocytes # Neutrophils # 1.4 L Lymphocytes # 1.1 Monocytes # 0.3 Eosinophils # 0.0 Basophils # 0.0 Nucleated Red Blood 0.0 Cells # Hemoglobin A1c 5.0 Subjective 24 Hr Interval Summary Free Text/Dictation Patient states she was feeling well this am but now with chills and concerned her BP may be high. She states her BP has been running high since stressed from her children moving to the [place] 5 months ago. Denies any chest pain or shortness of breath. Exam/Review of Systems Exam Vitals Vital Signs Date Temp Pulse Resp B/P (MAP) Pulse Ox O2 O2 Flow FiO2 Time Delivery Rate 05/10/19 98.6 59 18 132/71 97 Room Air 08:06 (91) Intake and Output 05/09/19 05/09/19 05/10/19 1414:59 22:59 06:59 IntakeIntake Total 250 ml BalanceBalance 250 ml Exam General: Armenian speaking female, no acute distress. Neck: Supple Chest: nontender Lungs: Clear to auscultation bilaterally. no wheezing or rhonchi Heart: Normal S1-S2, regular rhythm and rate. no murmurs Abdomen: Soft , nontender, nondistended, bowel sounds are present. No guarding no rebound tenderness Extremities: moving all extremities. dressing on right knee. no edema, c yanosis, or clubbing Skin: no rashes or lesions appreciated Results Results 24hrs Laboratory Tests Test 05/09/19 11:42 05/09/19 19:08 05/09/19 22:18 05/10/19 05:28 Urine Color COLORLESS Urine Clarity CLEAR Urine pH 7.0 Urine Specific 1.003 Slaughter Urine Ketones TRACE A Urine Nitrite NEGATIVE Urine Bilirubin NEGATIVE Urine Urobilinogen NEGATIVE Urine Leukocyte NEGATIVE Esterase Urine Hemoglobin NEGATIVE Urine Glucose NEGATIVE Urine Total Protein NEGATIVE Creatine Kinase 46 43 Creatine Kinase 4.7 4.7 Index Creatinine Kinase MB 2.17 2.00 (Mass) Troponin I 0.017 < 0.012 Sodium Level 141 Potassium Level 4.1 Chloride Level 106 Carbon Dioxide Level 28 Anion Gap 7 Blood Urea Nitrogen 14 Creatinine 0.73 Est Glomerular Filtrat Rate mL/min Glucose Level 87 Calcium Level 9.6 Magnesium Level 2.0 Triglycerides Level 119 Cholesterol Level 194 LDL Cholesterol, 130 Calculated HDL Cholesterol 40 Cholesterol/HDL 4.8 Ratio Test 05/10/19 05:29 White Blood Count 2.8 #L Red Blood Count 4.12 L Hemoglobin 12.3 Hematocrit 36.5 L Mean Corpuscular 88.6 Volume Mean Corpuscular 29.9 Hemoglobin Mean Corpuscular 33.7 Hemoglobin Concent Red Cell 12.6 Distribution Width Platelet Count 187 Mean Platelet Volume 10.1 Immature 0.400 Granulocytes % Neutrophils % 49.4 Lymphocytes % 39.6 Monocytes % 10.6 Eosinophils % 0.0 Basophils % 0.0 Nucleated Red Blood 0.0 Cells % Immature 0.010 Granulocytes # Neutrophils # 1.4 L Lymphocytes # 1.1 Monocytes # 0.3 Eosinophils # 0.0 Basophils # 0.0 Nucleated Red Blood 0.0 Cells # Hemoglobin A1c 5.0 Medications Medication Current Medications Diltiazem HCl 125 ml @ 5 mls/hr ONCE STAT IV ; Start 05/09/19 at 10:34; Stop 05/10/19 at 11:33 Ondansetron HCl (Zofran Inj) 4 mg ER BRIDGE PRN IV NAUSEA/VOMITING; Start 05/09/19 at 14:00; Stop 05/10/19 at 13:59 Acetaminophen (Tylenol Tab) 650 mg ER BRIDGE PRN PO .MILD PAIN 1-3 OR TEMP; Start 05/09/19 at 14:00; Stop 05/10/19 at 13:59 Metoprolol Tartrate (Lopressor) 50 mg BID PO Last administered on 05/10/19at 10:12; Admin Dose 50 MG; Start 05/09/19 at 15:00 Apixaban (Eliquis) 5 mg BID PO Last administered on 05/10/19at 10:10; Admin Dose 5 MG; Start 05/09/19 at 15:30 Amlodipine Besylate (Norvasc) 5 mg BID PO Last administered on 05/10/19at 10:11; Admin Dose 5 MG; Start 05/09/19 at 21:00 Celecoxib (Celebrex) 200 mg DAILY PO Last administered on 05/10/19at 10:10; Admin Dose 200 MG; Start 05/10/19 at 09:00 Cholecalciferol (Vitamin D) 5,000 unit DAILY PO Last administered on 05/10/19 10:13; Admin Dose 5,000 UNIT; Start 05/10/19 at 09:00 Clonazepam (Klonopin) 0.5 mg DAILY PRN PO ANXIETY; Start 05/09/19 at 15:00 Clonidine (Catapres) 0.1 mg Q6H PRN PO SBP >170; Start 05/09/19 at 15:00 Cyclosporine (Restasis) 1 drop Q12 BOTH EYES Last administered on 05/10/19 10:10; Admin Dose 1 DROP; Start 05/09/19 at 21:00 Furosemide (Lasix) 40 mg DAILY PO Last administered on 05/10/19 10:11; Admin Dose 40 MG; Start 05/10/19 at 09:00 Levalbuterol (Xopenex Hfa) 1 puff Q4H PRN INH WHEEZING AND SOB; Start 05/09/19 at 15:00 Levothyroxine Sodium (Synthroid) 50 mcg BEFORE BREAKFAST PO Last administered on 05/10/19 06:08; Admin Dose 50 MCG; Start 05/10/19 at 07:00 Loratadine (Claritin) 10 mg DAILY PO Last administered on 05/10/19 10:10; Admin Dose 10 MG; Start 05/10/19 at 09:00 Lubiprostone (Amitiza) 8 mcg BID PO Last administered on 05/10/19 10:11; Admin Dose 8 MCG; Start 05/09/19 at 21:00 Paroxetine HCl (Paxil) 10 mg DAILY PO Last administered on 05/10/19 10:13; Admin Dose 10 MG; Start 05/10/19 at 09:00 Ranitidine HCl (Zantac) 150 mg HS PO Last administered on 05/09/19 21:25; Admin Dose 150 MG; Start 05/09/19 at 21:00 IV Flush (NS 3 ml) 3 ml PER PROTOCOL IV ; Start 05/09/19 at 15:00 Ondansetron HCl (Zofran Inj) 4 mg Q6H PRN IV NAUSEA/VOMITING; Start 05/09/19 at 15:00 Nitroglycerin (Nitroglycerin (Sl Tab) 0.4 Mg) 1 tab Q5M PRN SL .CHEST PAIN; Start 05/09/19 at 15:00 Acetaminophen (Tylenol Tab) 650 mg Q6H PRN PO .PAIN 1-3 OR TEMP; Start 05/09/19 at 15:00 Docusate Sodium (Colace) 100 mg Q12H PRN PO .CONSTIPATION Last administered on 05/10/19at 06:08; Admin Dose 100 MG; Start 05/09/19 at 15:00 Magnesium Hydroxide (Milk Of Mag) 30 ml DAILY PRN PO .CONSTIPATION; Start 05/09/19 at 15:00 Diclofenac Sodium (Voltaren 1% Gel) 2 gm QID TP Last administered on 05/10/19at 10:13; Admin Dose 2 GM; Start 05/09/19 at 15:00 Tramadol HCl (Ultram) 50 mg Q6H PRN PO MODERATE PAIN LEVEL 4-6; Start 05/09/19 at 15:00 MATT GLASER MD May 10, 2019 11:06
[2019-05-10] MEDS ORDERED: APIX5TAB PO ×2 (11:09→11:55)
[2019-05-10 11:37] VITALS: BP 137/70; PULSE 62; RESP 18
--- NOTE | 2019-05-10 13:16 | CONS ---
Assessment/Plan Assessment/Plan Assessment/Plan (Daily) Assessment AFIb with RVR, resolved Plan: continue current meds echo pending Consultation Date/Type/Reason Admit Date/Time May 09, 2019 at 13:49 Initial Consult Date Type of Consult Cardiology Date/Time of Note DATE: 05/10/19 TIME: 13:15 24 HR Interval Summary Free Text/Dictation no distress, no chest pain or sob Detailed Summary Cardiovascular: no complaints Gastrointestinal: no complaints Musculoskeletal: no complaints Skin: no complaints Neurologic: no complaints Exam/Review of Systems Vital Signs Vitals Vital Signs Date Temp Pulse Resp B/P (MAP) Pulse Ox O2 O2 Flow FiO2 Time Delivery Rate 05/10/19 98.8 62 18 137/70 99 Room Air 11:37 (92) Intake and Output 05/09/19 05/09/19 05/10/19 1515:00 23:00 07:00 IntakeIntake Total 250 ml BalanceBalance 250 ml Exam Constitutional: alert, oriented Head: normocephalic, atraumatic Respiratory: clear to auscultation Cardiovascular: regular rate and rhythm Gastrointestinal: soft Musculoskeletal: nl extremities to inspection Labs Result Diagram: 05/10/19 0529 05/10/19 0528 Results 24hrs Laboratory Tests Test 05/09/19 19:08 05/09/19 22:18 05/10/19 05:28 05/10/19 05:29 Creatine Kinase 46 43 Creatine Kinase 4.7 4.7 Index Creatinine Kinase MB 2.17 2.00 (Mass) Troponin I 0.017 < 0.012 Sodium Level 141 Potassium Level 4.1 Chloride Level 106 Carbon Dioxide Level 28 Anion Gap 7 Blood Urea Nitrogen 14 Creatinine 0.73 Est Glomerular Filtrat Rate mL/min Glucose Level 87 Calcium Level 9.6 Magnesium Level 2.0 Triglycerides Level 119 Cholesterol Level 194 LDL Cholesterol, 130 Calculated HDL Cholesterol 40 Cholesterol/HDL 4.8 Ratio White Blood Count 2.8 #L Red Blood Count 4.12 L Hemoglobin 12.3 Hematocrit 36.5 L Mean Corpuscular 88.6 Volume Mean Corpuscular 29.9 Hemoglobin Mean Corpuscular 33.7 Hemoglobin Concent Red Cell 12.6 Distribution Width Platelet Count 187 Mean Platelet Volume 10.1 Immature 0.400 Granulocytes % Neutrophils % 49.4 Lymphocytes % 39.6 Monocytes % 10.6 Eosinophils % 0.0 Basophils % 0.0 Nucleated Red Blood 0.0 Cells % Immature 0.010 Granulocytes # Neutrophils # 1.4 L Lymphocytes # 1.1 Monocytes # 0.3 Eosinophils # 0.0 Basophils # 0.0 Nucleated Red Blood 0.0 Cells # Hemoglobin A1c 5.0 Medications Medications Current Medications Ondansetron HCl (Zofran Inj) 4 mg ER BRIDGE PRN IV NAUSEA/VOMITING; Start 05/09/19 at 14:00; Stop 05/10/19 at 13:59 Acetaminophen (Tylenol Tab) 650 mg ER BRIDGE PRN PO .MILD PAIN 1-3 OR TEMP; Start 05/09/19 at 14:00; Stop 05/10/19 at 13:59 Metoprolol Tartrate (Lopressor) 50 mg BID PO Last administered on 05/10/19 10:12; Admin Dose 50 MG; Start 05/09/19 at 15:00 Apixaban (Eliquis) 5 mg BID PO Last administered on 05/10/19 10:10; Admin Dose 5 MG; Start 05/09/19 at 15:30 Amlodipine Besylate (Norvasc) 5 mg BID PO Last administered on 05/10/19 10:11; Admin Dose 5 MG; Start 05/09/19 at 21:00 Celecoxib (Celebrex) 200 mg DAILY PO Last administered on 05/10/19 10:10; Admin Dose 200 MG; Start 05/10/19 at 09:00 Cholecalciferol (Vitamin D) 5,000 unit DAILY PO Last administered on 05/10/19 10:13; Admin Dose 5,000 UNIT; Start 05/10/19 at 09:00 Clonazepam (Klonopin) 0.5 mg DAILY PRN PO ANXIETY; Start 05/09/19 at 15:00 Clonidine (Catapres) 0.1 mg Q6H PRN PO SBP >170; Start 05/09/19 at 15:00 Cyclosporine (Restasis) 1 drop Q12 BOTH EYES Last administered on 05/10/19 10:10; Admin Dose 1 DROP; Start 05/09/19 at 21:00 Furosemide (Lasix) 40 mg DAILY PO Last administered on 05/10/19 10:11; Admin Dose 40 MG; Start 05/10/19 at 09:00 Levalbuterol (Xopenex Hfa) 1 puff Q4H PRN INH WHEEZING AND SOB; Start 05/09/19 at 15:00 Levothyroxine Sodium (Synthroid) 50 mcg BEFORE BREAKFAST PO Last administered on 05/10/19 06:08; Admin Dose 50 MCG; Start 05/10/19 at 07:00 Loratadine (Claritin) 10 mg DAILY PO Last administered on 05/10/19 10:10; Admin Dose 10 MG; Start 05/10/19 at 09:00 Lubiprostone (Amitiza) 8 mcg BID PO Last administered on 05/10/19 10:11; Admin Dose 8 MCG; Start 05/09/19 at 21:00 Paroxetine HCl (Paxil) 10 mg DAILY PO Last administered on 05/10/19 10:13; Admin Dose 10 MG; Start 05/10/19 at 09:00 Ranitidine HCl (Zantac) 150 mg HS PO Last administered on 05/09/19 21:25; Admin Dose 150 MG; Start 05/09/19 at 21:00 IV Flush (NS 3 ml) 3 ml PER PROTOCOL IV ; Start 05/09/19 at 15:00 Ondansetron HCl (Zofran Inj) 4 mg Q6H PRN IV NAUSEA/VOMITING; Start 05/09/19 at 15:00 Nitroglycerin (Nitroglycerin (Sl Tab) 0.4 Mg) 1 tab Q5M PRN SL .CHEST PAIN; Start 05/09/19 at 15:00 Acetaminophen (Tylenol Tab) 650 mg Q6H PRN PO .PAIN 1-3 OR TEMP; Start 05/09/19 at 15:00 Docusate Sodium (Colace) 100 mg Q12H PRN PO .CONSTIPATION Last administered on 05/10/19at 06:08; Admin Dose 100 MG; Start 05/09/19 at 15:00 Magnesium Hydroxide (Milk Of Mag) 30 ml DAILY PRN PO .CONSTIPATION; Start 05/09/19 at 15:00 Diclofenac Sodium (Voltaren 1% Gel) 2 gm QID TP Last administered on 05/10/19 10:13; Admin Dose 2 GM; Start 05/09/19 at 15:00 Tramadol HCl (Ultram) 50 mg Q6H PRN PO MODERATE PAIN LEVEL 4-6; Start 05/09/19 at 15:00 SUSIE YU MD May 10, 2019 13:16
[2019-05-10] MEDS ORDERED: METO-429 PO (15:47)
[2019-05-10 15:49] VITALS: BP 152/73; PULSE 60; RESP 18
--- NOTE | 2019-05-10 15:53 | PDOCDIS ---
Discharge Instructions DIAGNOSIS Discharge Diagnosis 1. Atrial fibrillation with RVR- resolved 2. Hypertension 3. Right breast cyst 4. Hypothyroidism 5. Arthritis 6. Chronic constipation 7. h/o H Pylori CONDITION [id number] Patient Condition: [id number] Stable HOME CARE INSTRUCTIONS: [id number] Diet Instructions: [id number] Low Fat /Cholesterol ACTIVITY: [id number] Activity Restrictions: [id number] No Restrictions FOLLOW UP/APPOINTMENTS Follow-up Plan 1. Follow up with your primary care physician in 1-2 weeks 2. You were started on Eliquis which is a blood thinner to help prevent strokes given the fact that you have an arrhythmia. You will need to be more careful since you have a higher risk of bleeding. If you fall and hit your head, please go to the nearest emergency room for evaluation. If you cut yourself and have difficulty stopping the bleed, go to the emergency department as well 3. You were started on Metoprolol 25 mg twice a day for better heart rate control. Do not take your Toprol XL any longer 4. You were concerned about having a high blood pressure which was most likely secondary to stress. Try and limit stressful situations. Your blood pressure was well controlled during your hospital stay. 5. If experiencing any concerning symptoms, please go to the nearest emergency department MATT GLASER MD May 10, 2019 15:53
--- NOTE | 2019-05-10 16:56 | DS ---
Date/Time of Note Date/Time of Note DATE: 05/10/19 TIME: 16:52 Discharge Summary Admission/Discharge Info Admit Date/Time May 09, 2019 at 13:49 Discharge Date/Time 05/10/19 Discharge Diagnosis 1. Atrial fibrillation with RVR- resolved 2. Hypertension 3. Right breast cyst 4. Hypothyroidism 5. Arthritis 6. Chronic constipation 7. h/o H Pylori Patient Condition: Stable Consults Cardiology- Dr. negro Enamorado of Present Illness 83 yo F with PMH Hypothyroidism, "arrhythmia", arthritis, constipation, and Hpylori presented to ED due to elevated blood pressure and "arrhythmia." She has been experiencing associated lightheadedness and intermittent palpitations. Patient states she has felt these palpitations before and believes this episode may be from the stress of her kids being in town. Patient also concerned about her BP being in the 190s and she said it usually runs in the 140s. Upon presentation to ED, she was found in atrial fibrillation with RVR with HR in the 160s. She was given Cardizem with improvement in rate. She denies being on blood thinners and if needed, only prefers aspirin. She denies shortness of breath, nausea, vomiting, any recent sick contact, cough, productive sputum, fevers, chills. She does admit to chronic constipation after vertebral fracture and on medications but afraid to take them. She likes to drink prune juice and increase fiber in her diet to assist with BMs. She denies any urinary discomfort. She denies any GI bleeding but is prone to falls given arthritis in knees and back issues. Hospital Course Patient was admitted for afib with RVR and given a dose of Cardizem. Patient was evaluated by Cardiology who adjusted her beta bon and started her on Eliquis. Patient converted back to sinus rhythm and was feeling better. BP remained stable during hospital stay. Cm was consulted to determine coverage of Eliquis and prescription was sent to her pharmacy. Patient was counseled about medication adjustments and need to continue prescribed medications for heart rate control and prevention of strokes. CT scan of chest results were discussed and patient was aware of cyst on right breast. Patients HR remained stable and she was discharged home in stable condition. Home Meds Active Scripts Metoprolol Tartrate* (Lopressor*) 50 Mg Tab, 50 MG PO BID for 30 Days, #60 TAB 1 Refill Prov:MATT GLASER MD 05/10/19 Apixaban* (Eliquis*) 5 Mg Tablet, 5 MG PO BID for 30 Days, #60 TAB 3 Refills Prov:MATT GLASER MD 05/10/19 Reported Medications Icosapent Ethyl (VASCEPA) 1 Gm Capsule, 2 GM PO BID, CAP 05/09/19 Lubiprostone* (Amitiza*) 8 Mcg Capsule, 8 MCG PO BID, #60 CAP 05/09/19 Clonidine Hcl* (Clonidine Hcl*) 0.1 Mg Tab, 0.1 MG PO DAILY PRN for ELEVATED BLOOD PRESSURE, TAB 05/09/19 Paroxetine Hcl* (Paxil*) 10 Mg Tablet, 10 MG PO DAILY, TAB 05/09/19 Cyclosporine (RESTASIS) 1 Each Droperette, 1 DROP BOTH EYES Q12, #1 BOX 05/09/19 Cholecalciferol (Vitamin D3) 5,000 Unit Tablet, 5000 UNIT PO DAILY, TAB 05/09/19 Olmesartan Medoxomil (Benicar) 5 Mg Tablet, 5 MG PO DAILY, #30 TAB 06/20/18 Furosemide* (Furosemide*) 40 Mg Tablet, 40 MG PO DAILY, TAB 06/20/18 Clonazepam* (Clonazepam*) 0.5 Mg Tablet, 0.5 MG PO DAILY PRN for ANXIETY, TAB 06/20/18 Aspirin* (Aspirin* Chew) 81 Mg Tab.chew, 81 MG PO DAILY, TAB.CHEW 06/20/18 Celecoxib* (Celebrex*) 200 Mg Capsule, 200 MG PO DAILY, CAP 06/20/18 Levothyroxine Sodium* (Levothyroxine Sodium*) 50 Mcg Tablet, 50 MCG PO BEFORE BREAKFAST, #30 TAB 06/20/18 Loratadine* (Loratadine*) 10 Mg Tablet, 10 MG PO DAILY, #30 TAB 06/20/18 Levalbuterol* (Xopenex* HFA) 15 Gm Inha, 2 PUFFS INH Q4H PRN for WHEEZING AND SOB, INHALER 06/20/18 Mirabegron (Myrbetriq) 50 Mg Tab.er.24h, 50 MG PO DAILY, TAB 06/20/18 Ranitidine Hcl* (Ranitidine Hcl*) 150 Mg Tablet, 150 MG PO HS, #30 TAB 06/20/18 Amlodipine Besylate* (Norvasc*) 5 Mg Tablet, 5 MG PO DAILY, TAB 06/20/18 Nitroglycerin* (Nitroglycerin* SL) 0.4 Mg Tab.subl, 0.4 MG SL Q5MIN PRN for CHEST PAIN, BOTTLE 06/20/18 Discontinued Reported Medications Hydrochlorothiazide* (Hydrochlorothiazide*) 25 Mg Tab, 25 MG PO DAILY, #30 TAB 06/20/18 Metoprolol Succinate* (Toprol XL*) 25 Mg Tab.sr.24h, 25 MG PO DAILY, #30 TAB 06/20/18 Icosapent Ethyl (VASCEPA) 1 Gm Capsule, 1 GM PO, CAP 05/09/19 Spironolactone* (Aldactone*) 25 Mg Tablet, 25 MG PO DAILY, #30 TAB 06/20/18 Duloxetine Hcl* (Duloxetine Hcl*) 30 Mg Capsule.dr, 30 MG PO BID, #30 CAP 06/20/18 Doxepin Hcl* (Silenor*) 3 Mg Tablet, 3 MG PO HS PRN for INSOMNIA, TAB 06/20/18 Memantine HCl/Donepezil HCl (Namzaric 28 mg-10 mg Capsule) 1 Each Cap.spr.24, 1 EACH PO DAILY 06/20/18 Buspirone Hcl* (Buspirone Hcl*) 5 Mg Tab, 5 MG PO DAILY, TAB 06/20/18 Vilazodone Hcl (Viibryd) 40 Mg Tablet, 40 MG PO DAILY, TAB 06/20/18 Diclofenac Sodium* (Voltaren* Gel) 1% -100 Gm Gel, 2 GM TOP QID, #1 TUB 06/20/18 Esomeprazole Mag Trihydrate (Nexium) 40 Mg Capsule.dr, 40 MG PO DAILY, #30 CAP 06/20/18 Cholecalciferol* (Vitamin D3*) 1,000 Unit Tablet, 1000 UNIT PO DAILY, TAB 06/20/18 Tramadol HCl/Acetaminophen (Ultracet Tablet) 1 Each Tablet, 1 EACH PO BID PRN for SEVERE PAIN LEVEL 7-10, TAB 06/20/18 Discontinued Scripts Ondansetron (Ondansetron Odt) 8 Mg Tab.rapdis, 8 MG PO Q6H PRN for NAUSEA AND/OR VOMITING, #10 TAB Prov:FRANKIE HIDALGO MD 06/20/18 Follow-up Plan 1. Follow up with your primary care physician in 1-2 weeks 2. You were started on Eliquis which is a blood thinner to help prevent strokes given the fact that you have an arrhythmia. You will need to be more careful since you have a higher risk of bleeding. If you fall and hit your head, please go to the nearest emergency room for evaluation. If you cut yourself and have difficulty stopping the bleed, go to the emergency department as well 3. You were started on Metoprolol 25 mg twice a day for better heart rate control. Do not take your Toprol XL any longer 4. You were concerned about having a high blood pressure which was most likely secondary to stress. Try and limit stressful situations. Your blood pressure was well controlled during your hospital stay. 5. If experiencing any concerning symptoms, please go to the nearest emergency department Primary Care Provider Not On Staff Doctor Time spent on discharge: > 30 minutes Pending Labs Laboratory Tests Test 05/09/19 19:08 05/09/19 22:18 05/10/19 05:28 05/10/19 05:29 Creatine 46 43 Kinase IU/L (23-200) IU/L (23-200) Creatine Kinase 4.7 4.7 Index Creatinine 2.17 2.00 Kinase MB ng/ml (0.0-2.4) ng/ml (0.0-2.4 (Mass) ) Troponin I 0.017 < 0.012 ng/ml (0.000-0. ng/ml (0.000-0 120) .120) Sodium Level 141 mmol/L (135-14 4) Potassium 4.1 Level mmol/L (3.5-5. 1) Chloride Level 106 mmol/L (97-110 ) Carbon Dioxide 28 Level mmol/L (21-31) Anion Gap 7 (5-13) Blood Urea 14 Nitrogen mg/dl (7-20) Creatinine 0.73 mg/dl (0.44-1. 00) Est Glomerular mL/min (>60) Filtrat Rate mL/min Glucose Level 87 mg/dl (70-220) Calcium Level 9.6 mg/dl (8.4-10. 2) Magnesium 2.0 Level mg/dl (1.7-2.5 ) Triglycerides 119 Level mg/dl (0-149) Cholesterol 194 Level mg/dl (100-200 ) LDL 130 mg/dl Cholesterol, Calculated HDL 40 Cholesterol mg/dl (33-92) Cholesterol/HDL 4.8 RATIO Ratio White Blood 2.8 Count 10^3/ul (4.8-1 0.8) Red Blood 4.12 Count 10^6/ul (4.20- 5.40) Hemoglobin 12.3 g/dl (12.0-16. 0) Hematocrit 36.5 % (37.0-47.0) Mean 88.6 Corpuscular fl (82.0-101.0 Volume ) Mean 29.9 Corpuscular pg (29.0-33.0) Hemoglobin Mean 33.7 Corpuscular g/dl (32.0-37. Hemoglobin Conc 0) ent Red Cell 12.6 Distribution % (11.5-14.5) Width Platelet Count 187 10^3/UL (140-4 15) Mean Platelet 10.1 Volume fl (7.4-10.4) Immature 0.400 Granulocytes % % (0.001-0.429 ) Neutrophils % 49.4 % (39.0-77.0) Lymphocytes % 39.6 % (15.0-51.0) Monocytes % 10.6 % (0.0-11.0) Eosinophils % 0.0 % (0.0-7.0) Basophils % 0.0 % (0.0-2.0) Nucleated Red 0.0 Blood Cells % /100WBC (0.0-0 .0) Immature 0.010 Granulocytes # 10^3/ul (0.0-0 .031) Neutrophils # 1.4 10^3/ul (1.6-7 .5) Lymphocytes # 1.1 10^3/ul (0.8-2 .9) Monocytes # 0.3 10^3/ul (0.3-0 .9) Eosinophils # 0.0 10^3/ul (0.0-0 .5) Basophils # 0.0 10^3/ul (0.0-0 .1) Nucleated Red 0.0 Blood Cells # 10^3/ul (0.0-0 .0) Hemoglobin A1c 5.0 % (0-5.9) MATT GLASER MD May 10, 2019 16:56
--- NOTE | 2019-05-11 16:29 | RADRPT ---
Echocardiogram Report Patient Name: JUNIOR MARTINSPatient ID: [id number] : 1935 (83y 7m)Study Date: 05/10/2019 2:09:39 PM Gender: FAccession #: [id number] Tech: LE Location: Ref.Physician: MAL LINSDAY Height(Cm): BSA: Weight(Kg): Quality: GoodOrder Physician: MAL LINDSAY Account #: Procedures: Echocardiographic Report: Transthoracic echocardiogram with complete 2D, M-Mode, and doppler examination. Indications: Atrial Fibrillation. Measurements: 2D/M Mode Doppler Measurement Value Normal Range Measurement Value Normal Range LVIDd 2D 4.0 [ 3.8 - 5.2 ] cm AV Mean Kal 1.0 [ 70.0 - 90.0 ] cm/sec LVIDs 2D 2.8 [ 2.2 - 3.5 ] cm AV Mean PG 5.0 [ 2.0 - 4.0 ] mmHg LVPWd 2D 1.0 [ 0.6 - 0.9 ] cm AV Peak Kal 1.5 [ 100.0 - 170.0 ] cm/sec IVSd 2D 1.0 [ 0.6 - 0.9 ] cm AV Peak PG 9.0 [ 2.0 - 9.0 ] mmHg EDV 2D 71.7 [ 46.0 - 106.0 ] ml AV VTI 34.9 cm ESV 2D 28.3 [ 14.0 - 42.0 ] ml LVOT Peak Kal 1.0 [ 70.0 - 110.0 ] cm/sec EF 2D 60.5 [ 54.0 - 74.0 ] percent LVOT Peak PG 4.0 [ 2.0 - 6.0 ] mmHg LVOT Diam 1.9 [ 2.1 - 2.5 ] cm MV E Peak Kal 1.0 [ 60.0 - 130.0 ] cm/sec MV A Peak Kal 1.1 [ 100.0 - 120.0 ] cm/sec MV E/A 0.9 [ 0.8 - 1.5 ] ratio MV Decel Time 275 [ 104 - 258 ] msec Lat E` Kal 0.1 [ 10.0 - 15.0 ] cm/sec Lateral E/E` 13.3 [ 1.0 - 2.0 ] ratio Med E` Kal 0.1 cm/sec MV E/A 0.9 [ 0.8 - 1.5 ] ratio TR Peak Kal 3.2 [ 100.0 - 280.0 ] cm/sec TR Peak PG 42.0 mmHg PV Peak Kal 0.7 [ 40.0 - 80.0 ] cm/sec PV Peak PG 2.0 mmHg Findings: Left Ventricle: Normal left ventricular systolic function. Normal left ventricular cavity size. Normal left ventricular wall thickness. Ejection fraction is visually estimated at 60 %. Abnormal Diastolic Function. Right Ventricle: Normal right ventricular size. Normal right ventricular systolic function. Left Atrium: The left atrium is normal in size. Right Atrium: The right atrium is normal in size. Mitral Valve: Normal appearance of the mitral valve. Mild to moderate mitral valve regurgitation. Aortic Valve: No hemodynamically significant aortic stenosis by doppler. Aortic sclerosis without significant stenosis. Aortic cusps appear moderately calcified. Trace aortic valve regurgitation. Tricuspid Valve: Normal appearance of the tricuspid valve. The estimated Peak RVSP is 50 mmHg. There is moderate tricuspid regurgitation. Pulmonic Valve: There is trace pulmonic regurgitation. Pericardium: Normal pericardium with no significant pericardial effusion. Aorta: Normal aortic root. IVC: Dilated IVC with respiratory collapse consistent with elevated right atrial pressure. Conclusions: Normal left ventricular systolic function. Normal left ventricular cavity size. Normal left ventricular wall thickness. Ejection fraction is visually estimated at 60 %. Abnormal Diastolic Function. Normal right ventricular size. Normal right ventricular systolic function. Normal appearance of the mitral valve. Mild to moderate mitral valve regurgitation. No hemodynamically significant aortic stenosis by doppler. Aortic sclerosis without significant stenosis. Aortic cusps appear moderately calcified. Trace aortic valve regurgitation. Normal appearance of the tricuspid valve. The estimated Peak RVSP is 50 mmHg. There is moderate tricuspid regurgitation. Normal pericardium with no significant pericardial effusion. Electronically Signed By: Mal Lindsay 2019-05-11 16:28:33 PDT
== END 2019-05-10 18:00 | disposition home or self-care (01) | DRG 310 ==
LOC: E/R 10:03 → 6WM 13:49
PROVIDERS: ADMIT Internal Medicine; ATTEND Internal Medicine
DX: I48.91 Unspecified atrial fibrillation (principal); I10 Essential (primary) hypertension; E03.9 Hypothyroidism, unspecified; M19.90 Unspecified osteoarthritis, unspecified site; K59.00 Constipation, unspecified
CPT/HCPCS: 36415; 71045; 71260; 80048; 80053; 80061; 81003; 82550; 82553; 83036; 83735; 83880; 84443; 84484; 85025; 85610; 85730; 87086; 93005; 93306; J7040; Q9967